=== PATIENT | male | born 1950 | race Caucasian/White ===

== ENCOUNTER 2022-06-20 01:03 | Inpatient (IN) | payer MEDICARE, OTHER, SELFPAY ==
[2022-06-20] VITALS (72 sets, daily range): BP systolic 111–167; BP diastolic 56–104; PULSE 87–136; RESP 9–30; TEMP 35.8–36.7; O2SAT 91–99; BMI 24.0
--- NOTE | ~2022-06-20 | XR_ITS ---
EXAM: XR abdomen NG/feed tube insert DATE: 06/22/2022 19:00 HISTORY: NGT placement . COMPARISON: 06/20/2022. FINDINGS: NG tube, tip and side port over the stomach. Streaky bibasilar opacities, likely atelectas is. Pneumoperitoneum. Midline surgical mercedes. Multiple loops of dilated small bowel in the upper ab domen. No organomegaly. No abnormal abdominal calcification. Degenerative changes in the spine. IMPRESSION: NG tube, in good position. Ileus versus obstruction. Reviewed, dictated and finalized at location K.
--- NOTE | ~2022-06-20 | XR_ITS ---
EXAMINATION: XR abdomen NG/feed tube insert DATE: 06/20/2022 10:16 INDICATION: Nasogastric tube placement TECHNIQUE: A supine view of the abdomen and lower chest was obtained for evaluation of feeding tube placement. COMPARISON: CT dated 07/17/2022 FINDINGS: Nasogastric tube tip in proximal side port in the body of the stomach. Multiple dilated gas-filled lo ops of small bowel in the visualized abdomen consistent with ileus versus obstruction. Small amount o f free intraperitoneal gas below the diaphragm likely related to recent surgery with midline surgical skin mrecedes project over the abdomen. Visualized mid to lower lungs are clear. Heart size is normal . IMPRESSION: 1. Is a gastric tube in stomach. 2. Free intraperitoneal gas likely related to reported recent right nephrectomy. 3. Multiple dilated gas-filled loops of small bowel consistent with ileus versus obstruction. Reviewed, dictated and finalized at location A. IMPRESSION: 1. Is a gastric tube in stomach. 2. Free intraperitoneal gas likely related to reported recent right nephrectomy . 3. Multiple dilated gas-filled loops of small bowel consistent with ileus versu s obstruction.
--- NOTE | ~2022-06-20 | XR_ITS ---
EXAMINATION: XR sm bowel follow through WS DATE: 06/23/2022 16:53 INDICATION: Small bowel obstruction post nephrectomy TECHNIQUE: Nurse Transitional radiograph(s) of the abdomen was/were obtained. Water-soluble oral contrast was admi nistered by the patient's existing nasogastric tube, and sequential radiographs of the abdomen were o btained until oral contrast was noted to be in the proximal colon. COMPARISON: CT dated 06/20/2022 FINDINGS: Nurse Transitional radiograph demonstrates midline skin mercedes overlying the abdomen and pelvis likely related to recent right nephrectomy. Nasogastric tube with tip in the body the stomach and proximal side-port n ear the level of the gastroesophageal junction. No dilated loops of gas-filled small bowel on the sco ut image. Subsequent images demonstrate gradual advancement of injected while contrast extending from the stomach to the colon. Transit time from the stomach to proximal colon was approximately 1.5-2 ho urs. There is normal caliber and mucosal fold pattern throughout the small bowel. There are some eve roesophageal reflux evident on the 1 hour 30 minute image. IMPRESSION: 1. Normal transit time to the colon of 1.5-2 hours with no dilated loops of bowel to suggest obstruct ion suggesting an improving postoperative ileus. 2. Small amount of gastroesophageal reflux. Reviewed, dictated and finalized at location A. IMPRESSION: 1. Normal transit time to the colon of 1.5-2 hours with no dilated loops of bow el to suggest obstruction suggesting an improving postoperative ileus. 2. Small amount of gastroesophageal reflux.
--- NOTE | ~2022-06-20 | CT_ITS ---
EXAMINATION: CT abdomen pelvis wo con DATE: 06/20/2022 03:39 INDICATION: nausea and vomiting status post R nephrectomy TECHNIQUE: Computed tomography (CT) of the abdomen and pelvis was performed without intravenous contr ast. Automated exposure control and iterative reconstruction technique were employed. The dose-length product was 364.89 mGy-cm. COMPARISON: None. FINDINGS: Lower thorax: Bibasilar atelectasis. Coronary artery calcifications. Liver: Normal. Biliary/Gallbladder: Cholelithiasis. No bile duct dilation. Pancreas: No mass or duct dilation. Spleen: Normal. Adrenals:No mass. Kidneys: Status post right nephrectomy. No mass, stone, or hydronephrosis on the left. GI tract: Diffusely dilated proximal and mid small bowel. Distal small bowel is decompressed but a tr ansition point is not confidently identified. Appendix not visualized. Diverticulosis without diverti culitis. Mesentery/Peritoneum: Small volume free air. The fluid in the perihepatic space and right renal fossa . Hyperdense areas within the fluid may represent clot. Retroperitoneum: No mass. Atherosclerotic abdominal aortic and/or arterial calcifications. Pelvis: Small volume free pelvic fluid. The bladder is drained by a Og catheter. Soft Tissues: Midline skin mercedes and surgical incision. Anterior hernia mesh Bones: No acute osseous finding. IMPRESSION: Small bowel obstruction. Site of obstruction not identified. Postsurgical changes from recent right n ephrectomy including pneumoperitoneum, small volume peritoneal and pelvic fluid and small volume post operative blood/clot. Active hemorrhage cannot be assessed without contrast. Reviewed, dictated and finalized at location K. IMPRESSION: Small bowel obstruction. Site of obstruction not identified. Postsurgical blevins es from recent right nephrectomy including pneumoperitoneum, small volume perit poole and pelvic fluid and small volume postoperative blood/clot. Active hemorr abdirizak cannot be assessed without contrast.
[2022-06-20] MEDS: SODIUM CHLORIDE 0.9% IV 1,000 ML 999 ML IV CONT ×2 (02:23→05:38)
[2022-06-20] MEDS: ONDANSETRON INJ 4 MG/2 ML VIAL IV PUSH ×2 (02:24→05:57)
[2022-06-20] MEDS: MORPHINE SULFATE (*CRX) 4 MG/ML INJ IV PUSH (02:24)
[2022-06-20 02:39] LABS: Appearance Urine Clear (Clear); Basophils Percent Auto 0.5 % (0.2-1.2); Bilirubin Urine 2+ (Negative); Blood Urine 3+ (Negative); Color Urine Yellow (Yellow); Eosinophils Absolute Auto 0.1 K/mm3 (0-0.3); Eosinophils Percent Auto 0.6 % (0-4.4); Glucose Urine UA Negative (Negative); Hematocrit 32.2 % (42.0-52.0); Hemoglobin 10.5 g/dL (14.0-18.0); Immature Granulocyte Absolute 0.02 K/mm3 (0.00-0.031); Immature Granulocyte Percent A 0.2 % (0-0.5); Ketones Urine Trace mg/dL (Negative); Leukocyte Esterase Ur Trace LEU/UL (Negative); Lymphocytes Absolute Auto 0.99 K/mm3 (0.9-3.2); Lymphocytes Percent Auto 11.3 % (18.3-44.2); Mean Corpuscular HGB Conc 32.6 g/dl (32-36); Mean Corpuscular Hemoglobin 27.5 pg (26-34); Mean Corpuscular Volume 84.3 fl (80-100); Mean Platelet Volume 8.6 fl (7.4-10.4); Monocytes Percent Auto 10.8 % (2.6-8.5); Neutrophils Absolute Auto 6.7 K/mm3 (1.3-6.7); Neutrophils Percent Auto 76.6 % (45.5-73.1); Nitrate Urine Negative (Negative); Platelet Count Result 363 k/mm3 (150-375); Protein Urine 3+ mg/dL (Negative); Red Blood Count 3.82 M/mm3 (4.6-6.20); Red Cell Distribution Width 15.1 % (11.5-14.5); Specific Grav Ur >= 1.030 (1.001-1.035); White Blood Count 8.8 K/mm3 (4.5-10.0); pH Urine 5.5 (5.0-9.0)
--- NOTE | 2022-06-20 02:44 | ED.GENADULT ---
HPI - General Adult General Chief complaint: Nausea/Vomiting/Diarrhea Stated complaint: Vomiting, recent Right nephrectomy Time Seen by Provider: 06/20/22 01:56 History of Present Illness HPI narrative: Patient 71-year-old gentleman who presents the emergency department with chief complaint of nausea and vomiting. The patient reports that he had a nephrectomy for renal cancer this week was discharged home and has started having nausea and vomiting. The patient reports the wounds are appearing in good shape patient reports he is noticed his urine has been all darker and has been decreased from what it has been. The patient reports has had multiple bouts of vomiting reports that his pain really has not worsened that much. Patient had surgery on Wednesday at [facility] for the nephrectomy Related Data Allergies Allergy/AdvReac Type Severity Reaction Status Date / Time egg Allergy Rash Verified 06/20/22 01:11 Review of Systems Review of Systems: A 10 system review of systems was completed on the patient and is negative except for what is stated in the HPI. Nursing and ancillary documentation was reviewed. Exam Narrative: GENERAL: Well-appearing, well-nourished, and in no acute distress. HEAD: Normocephalic, atraumatic. EYES: PERRLA and EOMI. ENT: Nares clear, no rhinorrhea or epistaxis. Mucous membranes moist. NECK: Supple. CHEST: Clear to auscultation. No respiratory distress. HEART: Regular rate and rhythm. No murmur heard. Normal peripheral pulses. ABDOMEN: Soft, nontender, nondistended, normal active bowel sounds. Midline incision to the abdomen appears well approximated with no erythema. : Og catheter in place EXTREMITIES: Normal range of motion. No edema. SKIN: Warm, dry, no rash. NEURO: No focal deficits. Alert and oriented x3. PSYCH: Normal mood and affect. Course Course Emergency Course: The case was discussed with our local hospitalist given the patient is less than 1 week postop from nephrectomy at [facility] and new onset A. fib and also postoperative small bowel obstruction they recommended the patient be transferred back to [facility]. The case was discussed with the house mover at [facility]. Currently there are no surgical beds available at this time in the morning they will notify the day house mover and as beds become available they will contact us. Vital Signs Vital signs: Vital Signs Temperature 36.3 C L 06/20/22 01:08 Pulse Rate 98 06/20/22 01:08 Respiratory Rate 17 06/20/22 01:08 Blood Pressure 128/104 H 06/20/22 01:08 Pulse Oximetry 96 06/20/22 01:08 Oxygen Delivery Room Air 06/20/22 01:08 Temperature 36.3 C L 06/20/22 01:08 Pulse Rate 98 06/20/22 01:08 Respiratory Rate 17 06/20/22 01:08 Blood Pressure 128/104 H 06/20/22 01:08 Pulse Oximetry 96 06/20/22 01:08 Oxygen Delivery Room Air 06/20/22 01:08 Medical Decision Making Vital Signs Vital Signs: Vital Signs Temperature 36.3 C L 06/20/22 01:08 Pulse Rate 98 06/20/22 01:08 Respiratory Rate 17 06/20/22 01:08 Blood Pressure 128/104 H 06/20/22 01:08 Pulse Oximetry 96 06/20/22 01:08 Oxygen Delivery Room Air 06/20/22 01:08 Temperature 36.3 C L 06/20/22 01:08 Pulse Rate 98 06/20/22 01:08 Respiratory Rate 17 06/20/22 01:08 Blood Pressure 128/104 H 06/20/22 01:08 Pulse Oximetry 96 06/20/22 01:08 Oxygen Delivery Room Air 06/20/22 01:08 Lab Data Result diagrams: 06/20/22 02:29 06/20/22 02:29 Labs: Lab Results 06/20/22 06/20/22 06/20/22 Range/Units 02:29 02:29 02:29 WBC 8.8 (4.5-10.0) K/mm3 RBC 3.82 L (4.6-6.20) M/mm3 Hgb 10.5 L (14.0-18.0) g/dL Hct 32.2 L (42.0-52.0) % MCV 84.3 (80-100) fl MCH 27.5 (26-34) pg MCHC 32.6 (32-36) g/dl RDW 15.1 H (11.5-14.5) % Plt Count 363 (150-375) k/mm3 MPV 8.6 (7.4-10.4) fl Immature Gran % (Auto) 0.2 (0-0.5) %
[2022-06-20 02:45] LABS: Add Urine Microscopic? YES
[2022-06-20 02:46] LABS: RBC Urine 21-50 /hpf (0-2)
[2022-06-20 02:47] LABS: WBC Urine 31-50 /hpf (0-3)
[2022-06-20 02:48] LABS: Squamous Epithelial Cell Urine Few /hpf (Few)
[2022-06-20 02:49] LABS: Alanine Aminotransferase 25 U/L (6-50); Albumin Level 3.7 g/dL (3.5-5.1); Alkaline Phosphatase 142 U/L (38-126); Anion Gap 11 mmol/L (8-16); Aspartate Amino Transferase 31 U/L (17-59); Bilirubin,Total 0.6 mg/dL (0.2-1.3); Blood Urea Nitrogen 27 mg/dL (9-20); Carbon Dioxide 37 mmol/L (22-30); Chloride 89 mmol/L (98-107); Estimated CRCL calculation 56 ml/min; Estimated Glomerular Filt Rate > 60; Glucose 146 mg/dL (65-110); Magnesium 1.9 mg/dL (1.6-2.3); Potassium 4.1 mmol/L (3.4-5.0); Sodium 137 mmol/L (137-145)
[2022-06-20 02:51] LABS: Bacteria Urine 1+ /hpf
--- NOTE | 2022-06-20 04:57 | ECG_ITS ---
Measurements Intervals Mode Rate: 128 P: DE: 0 QRS: 7 QRSD: 84 T: 71 QT: 392 QTc: 573 Interpretive Statements ATRIAL FIBRILLATION WITH RAPID VENTRICULAR RESPONSE EARLY PRECORDIAL R/S TRANSITION NONSPECIFIC T-WAVE ABNORMALITY- INF/LAT LEADS ABNORMAL ECG NO PREVIOUS ECG AVAILABLE FOR COMPARISON Electronically Signed On 06-20-2022 7:32:10 CDT by Sami Fox D.O.
[2022-06-20] MEDS: dilTIAZem HCl INJ 25 MG/5 ML VIAL 20 MG IV PUSH (05:38)
[2022-06-20] MEDS: dilTIAZem 100 MG/100 ML 100 MG/100 ML BAG IV CONT (05:57)
[2022-06-20 06:08] LABS: Troponin I 0.014 ng/mL (0.000-0.034)
[2022-06-20] MEDS: MORPHINE SULFATE (*CRX) 2 MG/ML INJ IV PUSH ×2 (10:00→21:42)
--- NOTE | 2022-06-20 10:13 | PC.NURSE ---
food tray ordered
[2022-06-20] MEDS: PANTOPRAZOLE SODIUM IV 40 MG VIAL IV PUSH (10:51)
[2022-06-20] MEDS: SODIUM CHLORIDE 0.9% IV 1,000 ML 100 ML IV CONT (10:51)
--- NOTE | 2022-06-20 14:02 | ECG_ITS ---
Measurements Intervals Gary Rate: 97 P: 63 AL: 150 QRS: 1 QRSD: 84 T: 29 QT: 374 QTc: 476 Interpretive Statements SINUS RHYTHM FREQUENT ATRIAL PREMATURE COMPLEXES EARLY PRECORDIAL R/S TRANSITION CONSIDER INFERIOR INFARCT, AGE INDETERMINATE ABNORMAL ECG COMPARED TO ECG 06/20/2022 05:04:38 SINUS RHYTHM NOW PRESENT Electronically Signed On 06-20-2022 18:42:25 CDT by Sami Fox D.O.
--- NOTE | 2022-06-20 14:30 | PM.IMHP ---
H&P: HPI History of Present Illness Date/Time: 06/20/22 14:30 Chief Complaint: Nausea, vomiting. Narrative: This is a very pleasant 71-year-old male with benign prostatic hyperplasia who presented to the emergency department from home for evaluation of nausea and vomiting. 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 He has not had a bowel movement since discharge and he has not had much oral intake. Yesterday he started to feel nauseated and bloated and the last 24 hours he has had numerous bouts of emesis. After speaking with his surgeon he was directed to the nearest ED for evaluation. His vital signs have been stable since arrival however he was found to be in atrial fibrillation with rapid ventricular response, which is a new diagnosis for him. He has since been started on a Cardizem drip with improvement in his rate. Interestingly he has no symptoms of atrial fibrillation and he specifically denies sensations of racing heart, palpitations, etc. CT of the abdomen and pelvis showed evidence of small-bowel obstruction and NG tube has been inserted; he had over a liter of bilious output almost immediately. Transfer was initiated to [facility] however a bed will not be available at least until tomorrow and he is being admitted here for supportive care. At the time my evaluation he feels better since the NG tube was inserted. He continues to have some hiccups. He is not in any significant pain. He denies chest pain, shortness breast, and dizziness. Review of Systems Review of Systems: Twelve systems were reviewed. No fever, chills, or sweats. Over the last year so he has been on a keto diet has lost about 40 lb. In March of this year he had painless hematuria at which time he was noted to have a bladder tumor. It is my understanding that imaging had showed possible malignancy arising in the ureter which prompted the nephrectomy. No chest pain or pleuritic pain. No shortness of breath. No history of coronary artery disease or cardiac dysrhythmia. No hematemesis. He has noticed that his urine is darker than usual and his urine output has been a bit less the last several days. Except as documented, all other systems were reviewed and are negative. [facility] Past Medical History Medical History (Updated 06/20/22 @ 18:00 by Rosario Franklin PA-C) Benign prostatic hyperplasia Gastroesophageal reflux disease Surgical History Surgical History (Updated 06/20/22 @ 17:56 by Rosario Franklin PA-C) History of biopsy of bladder (03/2022) History of cystoscopy (03/2022) History of inguinal hernia repair History of right nephrectomy (06/16/22) History of ventral hernia repair Family History Family History (Updated 06/20/22 @ 17:57 by Rosario Franklin PA-C) Sibling Brain cancer Sibling Lung cancer Sibling Coronary artery disease Social History Social History (Updated 06/20/22 @ 17:58 by Rosario Franklin PA-C) Social History: Surrogate medical decision maker: Ric Remington, spouse. Code status: Full code. Smoking packs per day: 1 Smoking cigarettes per day: 20.0 Years smoked: 20 Smoking pack-years: 20.00 Smoking status: Former smoker Tobacco type: cigarettes Additional smoking assessment comments: Quit at age 35. Alcohol intake: never Substance use: never Substance use type: does not use Additional living arrangements comments: The patient lives with his in [place]. 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 Spiritual care concerns: No Meds Home Medications and Allergies Home Medications Medication Instructions Recorded Confirmed Type oxycodone 5 mg tablet 5 mg PO Q6H PRN PAIN 06/20/22 06/20/22 History tamsulosin 0.4 mg capsule 0.4 mg PO DAILY 06/20/22 06/20/22 History Allergies Allergy/AdvReac Type Severity Reaction St
--- NOTE | 2022-06-20 17:19 | ADMGEN ---
This patient, Karthik Macedo, was admitted to IMU Room 231-01 at 1625. Patient/family oriented to hospital policies and general routines including ID bracelet, bed and alarms, visiting hours, pain management, procedures, bathroom and other care routines, personal items, smoking policy, room service/diet, and visiting hours. Information on how to activate the Rapid Response Team has been discussed. Patient/Family are encouraged to report perceived risks to care and to ask questions if they do not understand what they are told or what they should do.
[2022-06-20 17:54] LABS: Troponin I < 0.012 ng/mL (0.000-0.034)
[2022-06-20 20:42] LABS: Troponin I 0.015 ng/mL (0.000-0.034)
[2022-06-21] VITALS (16 sets, daily range): BP systolic 100–118; BP diastolic 56–72; PULSE 62–106; RESP 12–20; TEMP 36.4–36.9; O2SAT 92–97
[2022-06-21] MEDS: dilTIAZem 100 MG/100 ML 100 MG/100 ML BAG IV CONT (00:02)
[2022-06-21] MEDS: SODIUM CHLORIDE 0.9% IV 1,000 ML 75 ML IV CONT ×2 (02:02→15:22)
[2022-06-21 04:40] LABS: Basophils Percent Auto 0.4 % (0.2-1.2); Eosinophils Absolute Auto 0.6 K/mm3 (0-0.3); Hematocrit 25.2 % (42.0-52.0); Immature Granulocyte Absolute 0.01 K/mm3 (0.00-0.031); Immature Granulocyte Percent A 0.2 % (0-0.5); Lymphocytes Absolute Auto 1.17 K/mm3 (0.9-3.2); Lymphocytes Percent Auto 22.9 % (18.3-44.2); Mean Corpuscular HGB Conc 31.7 g/dl (32-36); Mean Corpuscular Hemoglobin 27.7 pg (26-34); Mean Corpuscular Volume 87.2 fl (80-100); Mean Platelet Volume 8.2 fl (7.4-10.4); Monocytes Absolute Auto 0.9 K/mm3 (0.1-0.6); Monocytes Percent Auto 17.1 % (2.6-8.5); Neutrophils Absolute Auto 2.4 K/mm3 (1.3-6.7); Neutrophils Percent Auto 47.4 % (45.5-73.1); Platelet Count Result 265 k/mm3 (150-375); Red Blood Count 2.89 M/mm3 (4.6-6.20); Red Cell Distribution Width 15.3 % (11.5-14.5); White Blood Count 5.1 K/mm3 (4.5-10.0)
[2022-06-21 04:52] LABS: Alanine Aminotransferase 24 U/L (6-50); Albumin Level 2.9 g/dL (3.5-5.1); Alkaline Phosphatase 122 U/L (38-126); Anion Gap 3 mmol/L (8-16); Aspartate Amino Transferase 33 U/L (17-59); Bilirubin,Total 0.7 mg/dL (0.2-1.3); Blood Urea Nitrogen 32 mg/dL (9-20); Calcium 8.9 mg/dL (8.4-10.2); Carbon Dioxide 31 mmol/L (22-30); Chloride 101 mmol/L (98-107); Estimated CRCL calculation 61 ml/min; Estimated Glomerular Filt Rate > 60; Glucose 93 mg/dL (65-110); Magnesium 1.9 mg/dL (1.6-2.3); Potassium 3.3 mmol/L (3.4-5.0); Sodium 135 mmol/L (137-145)
[2022-06-21] MEDS: TAMSULOSIN HCL 0.4 MG CAPSULE PO (10:56)
--- NOTE | 2022-06-21 11:03 | PC.NURSE ---
NG clamped at 1100. No complaints of nausea/vomiting at this time. Will continue to monitor closely.
--- NOTE | 2022-06-21 11:05 | PM.IMPN ---
Progress Note: A&P Assessment and Plan (1) Small bowel obstruction: Code(s): K56.609 - Unspecified intestinal obstruction, unspecified as to partial versus complete obstruction Status: Acute Assessment and Plan: Appreciate surgical consult. Continue NG tube to suction. IV fluids. (2) Atrial fibrillation with rapid ventricular response: Code(s): I48.91 - Unspecified atrial fibrillation Status: Acute Assessment and Plan: Asymptomatic Cardizem drip Hold anticoagulation secondary to a possible need for surgery. And recent surgery. Cardiology is also consult (3) Normocytic anemia: Code(s): D64.9 - Anemia, unspecified Status: Acute Assessment and Plan: He has not had labs at this facility before though I suspect his H&H are a bit low from his recent surgery. Monitor for now. (4) Dehydration: Code(s): E86.0 - Dehydration Status: Acute Assessment and Plan: IV fluids (5) Benign prostatic hyperplasia: Code(s): N40.0 - Benign prostatic hyperplasia without lower urinary tract symptoms Status: Acute Assessment and Plan: Og catheter remains in place. Subjective Date/time seen: 06/21/22 11:05 No complaints, no chest pain. Exam Narrative: General: Mildly ill-appearing male sitting up in bed in no distress. Weight: 76 kg. BMI: 24.0. HEENT: PERRL, EOMI. Sclera anicteric. NG tube in the left naris draining bilious fluid. Dry mucous membranes. Neck: Supple. Respiratory: Lungs are clear to auscultation bilaterally. Cardiovascular: Irregularly irregular rate and rhythm. Gastrointestinal: Abdomen is slightly distended with hypoactive bowel sounds. Midline incision is covered with a clean, dry, and intact dressing. Several laparoscopic incisions are well approximated. Skin: Warm and dry. No rash or lesions on limited exam. Extremities: No cyanosis, clubbing, or edema. Radial and pedal pulses intact. Neurological: Alert. Cranial nerves 2-12 are grossly intact. No gross focal deficits to casual conversation. Psychiatric: Pleasant and cooperative with normal mood and affect. Judgment and insight intact. Objective Data Vital Signs Vital Signs: Vital Signs - 24 hr 06/20/22 11:30 06/20/22 11:31 06/20/22 11:45 Temperature Pulse Rate 109 H 94 99 Respiratory Rate 18 15 17 Blood Pressure 125/73 Pulse Oximetry 93 96 97 Oxygen Delivery 06/20/22 12:00 06/20/22 12:01 06/20/22 12:15 Temperature Pulse Rate 97 99 98 Respiratory Rate 19 19 17 Blood Pressure 137/79 Pulse Oximetry 96 Oxygen Delivery 06/20/22 12:30 06/20/22 12:31 06/20/22 12:45 Temperature Pulse Rate 102 H 112 H 98 Respiratory Rate 21 H 18 17 Blood Pressure 116/75 Pulse Oximetry 98 97 Oxygen Delivery 06/20/22 13:00 06/20/22 13:01 06/20/22 13:15 Temperature Pulse Rate 103 H 101 H 98 Respiratory Rate 17 16 16 Blood Pressure 113/65 Pulse Oximetry 97 97 96 Oxygen Delivery 06/20/22 13:30 06/20/22 13:31 06/20/22 13:45 Temperature Pulse Rate 102 H 94 109 H Respiratory Rate 21 H 21 H 18 Blood Pressure 116/58 L Pulse Oximetry 98 97 Oxygen Delivery 06/20/22 14:00 06/20/22 14:01 06/20/22 14:02 Temperature Pulse Rate 94 95 94 Respiratory Rate 16 17 14 Blood Pressure 117/56 L Pulse Oximetry 98 98 Oxygen Delivery 06/20/22 14:15 06/20/22 14:30 06/20/22 14:31 Temperature Pulse Rate 98 97 101 H Respiratory Rate 20 12 19 Blood Pressure 113/70 Pulse Oximetry 93 97 Oxygen Delivery 06/20/22 14:45 06/20/22 15:00 06/20/22 15:01 Temperature Pulse Rate 95 94 92 Respiratory Rate 19 14 22 H Blood Pressure 114/75 Pulse Oximetry 97 99 96 Oxygen Delivery 06/20/22 15:15 06/20/22 15:30 06/20/22 15:31 Temperature Pulse Rate 101 H 98 94 Respiratory Rate 18 9 L 18 Blood Pressure 111/62 Pulse Oximetry 98 96 98 Oxygen Delivery 06/20/22 15:45 0
--- NOTE | 2022-06-21 11:19 | PM.CNGS ---
Assessment and Plan Assessment and plan (1) Small bowel obstruction: Code(s): K56.609 - Unspecified intestinal obstruction, unspecified as to partial versus complete obstruction Status: Acute Assessment and Plan: exam benign, + flatus, will attempt to clamp NG and start sips of clears, if no recurrent issues in 4-6 hours will try to remove NG and start clears (2) Atrial fibrillation with RVR: Code(s): I48.91 - Unspecified atrial fibrillation Status: Acute Assessment and Plan: new onset, on Cardizem gtt per cardiology (3) Dehydration: Code(s): E86.0 - Dehydration Status: Acute Assessment and Plan: cont IV resus History of Present Illness Consult details Consult date: 06/21/22 Reason for consult: abdominal pain Requesting physician: Araseli Cherry DO Narrative: The patient is a 71-year-old male presenting to the emergency depart complaining of severe crampy abdominal pain associated with intractable nausea and vomiting. The patient had a right nephrectomy on Wednesday of last week at an outside hospital. The patient reports since surgery he has not had any bowel function. The patient reports poor appetite over same time span. The patient reports he has progressively had worsening crampy abdominal pain over the last week. The patient then developed intractable nausea and vomiting over the weekend. Workup in the emergency department, including imaging, is significant for small bowel obstruction. The patient had accepted for transfer back to [facility], however, no beds are currently available. Review of Systems Constitutional: Constitutional: Reports as per HPI, Reports anorexia, Denies chills, Reports fatigue, Denies increased appetite, Reports lethargy, Reports malaise, Reports poor appetite, Reports weakness, Denies weight gain and Denies weight loss Eyes: Eyes: Reports no additional eye complaints ENT: Reports system reviewed and no additional complaints, except as documented Cardiovascular: Cardiovascular: Reports no additional cardiovascular complaints Respiratory: Respiratory: Reports no additional respiratory complaints Gastrointestinal: Gastrointestinal: Reports as per HPI, Reports abdominal pain, Reports bloating, Reports constipation, Reports early satiety, Reports nausea and Reports vomiting Genitourinary: Genitourinary: Reports no additional male genitourinary complaints Musculoskeletal: Musculoskeletal: Reports no additional musculoskeletal complaints Integumentary/Breasts: Skin/Breast: Reports system reviewed and no additional complaints, except as docu Neurologic: Reports system reviewed and no additional complaints, except as documented Psychiatric: Psychiatric: Reports no additional psychiatric complaints Endocrine: Endocrine: Reports no additional endocrine complaints Hematologic/Lymphatic: Hematologic/Lymphatic: Reports no additional hematologic/lymphatic complaints Allergic/Immunologic: Allergic/Immunologic: Reports no additional allergic/immunologic complaints [facility] Past Medical History Medical History Benign prostatic hyperplasia Gastroesophageal reflux disease Surgical History Surgical History History of biopsy of bladder (03/2022) History of cystoscopy (03/2022) History of inguinal hernia repair History of right nephrectomy (06/16/22) History of ventral hernia repair Family History Family History Sibling Brain cancer Sibling Lung cancer Sibling Coronary artery disease Social History Social History Social History: Surrogate medical decision maker: Ric Macedo, spouse. Code status: Full code. Smoking packs per day: 1 Smoking cigarettes per day: 20.0 Years smoked: 20 Smoking pack-years: 20.00 Sm
--- NOTE | 2022-06-21 11:30 | PM.CNCAR ---
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 He year has a postop ileus or bowel obstruction I would imagine. I am asked to see him because he of the impression that he had atrial fib with RVR. Upon my review of his electrocardiograms he had sinus tachycardia with PACs I do not see any tracings that are indicative of atrial fibrillation. I am going to stop the IV diltiazem infusion and at this point we will observe him while he is in the hospital here. I not sure if there are still plans to transfer him to [facility] when they have a bed available since his operation earlier in the week was done on there. Patient indicates that his NG tube suction is going to be discontinued later and some clear liquids are going to be attempted. Nonetheless at this point I do not have any specific cardiac recommendations. While he is here if there are cardiac issues please let me know Omar Handley MD [facility] History of Present Illness History of Present Illness Consult date/time: 06/21/22 11:30 Reason For Visit: small bowel obstruction, a fib with rvr Narrative: This is a 71-year-old gentleman I am seeing today at the request of the hospitalist after was admitted from the ER yesterday evening. He was there with some abdominal pain no bowel movement since earlier in the week and some nausea. He was felt to be in atrial fib with RVR upon admission he was not complaining of any sense of palpitations or chest pain no significant shortness of breath. He has never had any cardiac problems in the past. As it happens on Wednesday of this past week he underwent a right nephrectomy at [facility]. 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 He underwent removal of this mass as well as removal of the right kidney and was discharged after a couple of days. Was feeling worse in this as described above and came to the emergency room. He is felt to possibly have a small-bowel obstruction after this. I suppose it is also possible that he has a postoperative ileus. In any event because of the a tachycardia and irregular pulse he was placed on diltiazem and admitted to the hospital. I have just reviewed the patient's electrocardiograms personally and he does not have atrial fibrillation he does have some atrial ectopic activity and he was tachycardic but we do see P waves on all of the ECGs and rhythm strips that are in the record. He has otherwise been enjoying very good health he denies any problems such as hypertension dyslipidemia or diabetes. He has been a lifelong nonsmoker. 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 Review of Systems Constitutional: Constitutional: Reports no additional constitutional complaints Eyes: Eyes: Reports no additional eye complaints ENT: Reports system reviewed and no additional complaints, except as documented Cardiovascular: Cardiovascular: Reports no additional cardiovascular complaints Respiratory: Respiratory: Reports no additional respiratory complaints Gastrointestinal: Gastrointestinal: Reports as per HPI and Reports abdominal pain Musculoskeletal: Musculoskeletal: Reports no additional musculoskeletal complaints Integumentary/Breasts: Skin/Breast: Reports system reviewed and no additional complaints, except as docu Neurologic: Reports system reviewed and no additional complaints, except as documented Endocrine: Endocrine: Reports no additional endocrine complaints Hematologic/Lymphatic: Hematologic/Lymphatic: Reports no additional hematologic/lymphatic complaints
--- NOTE | 2022-06-21 17:47 | PC.NURSE ---
NG removed without complication. Will monitor closely for nausea/vomiting/pain. Patient sitting on the side of bed at this time. No complaints.
[2022-06-21] MEDS: oxyCODONE HCL (*CRX) 5 MG TAB IR PO (23:29)
[2022-06-22] VITALS (15 sets, daily range): BP systolic 108–140; BP diastolic 64–87; PULSE 90–138; RESP 14–24; TEMP 36.7–37.1; O2SAT 94–97
[2022-06-22] MEDS: SODIUM CHLORIDE 0.9% IV 1,000 ML 75 ML IV CONT ×2 (03:30→17:00)
[2022-06-22] MEDS: oxyCODONE HCL (*CRX) 5 MG TAB IR PO ×2 (06:43→15:39)
[2022-06-22] MEDS: TAMSULOSIN HCL 0.4 MG CAPSULE PO (09:13)
[2022-06-22 09:17] LABS: Anion Gap 5 mmol/L (8-16); Blood Urea Nitrogen 24 mg/dL (9-20); Calcium 8.2 mg/dL (8.4-10.2); Carbon Dioxide 28 mmol/L (22-30); Chloride 103 mmol/L (98-107); Estimated CRCL calculation 67 ml/min; Estimated Glomerular Filt Rate > 60; Glucose 83 mg/dL (65-110); Potassium 3.1 mmol/L (3.4-5.0); Sodium 136 mmol/L (137-145)
[2022-06-22] MEDS: POTASSIUM CHLORIDE 20 MEQ PACKET (FOR LIQUID) 40 MEQ PO (10:45)
--- NOTE | 2022-06-22 11:13 | PM.IMPN ---
Progress Note: A&P Assessment and Plan (1) Small bowel obstruction: Code(s): K56.609 - Unspecified intestinal obstruction, unspecified as to partial versus complete obstruction Status: Acute Assessment and Plan: Appreciate surgical consult. NG tube has been pulled. Tolerating liquid diet. Will advance per surgery (2) Atrial fibrillation with rapid ventricular response: Code(s): I48.91 - Unspecified atrial fibrillation Status: Acute Assessment and Plan: Cardiology felt this was not related to atrial fibrillation. Monitor (3) Normocytic anemia: Code(s): D64.9 - Anemia, unspecified Status: Acute Assessment and Plan: He has not had labs at this facility before though I suspect his H&H are a bit low from his recent surgery. Monitor for now. (4) Dehydration: Code(s): E86.0 - Dehydration Status: Acute Assessment and Plan: IV fluids (5) Benign prostatic hyperplasia: Code(s): N40.0 - Benign prostatic hyperplasia without lower urinary tract symptoms Status: Acute Assessment and Plan: Og catheter remains in place. Subjective Date/time seen: 06/22/22 11:13 Doing okay, tolerating liquid diet Exam Narrative: General: Mildly ill-appearing male sitting up in bed in no distress. Weight: 76 kg. BMI: 24.0. HEENT: PERRL, EOMI. Sclera anicteric. NG tube in the left naris draining bilious fluid. Dry mucous membranes. Neck: Supple. Respiratory: Lungs are clear to auscultation bilaterally. Cardiovascular: Irregularly irregular rate and rhythm. Gastrointestinal: Abdomen is slightly distended with hypoactive bowel sounds. Midline incision is covered with a clean, dry, and intact dressing. Several laparoscopic incisions are well approximated. Skin: Warm and dry. No rash or lesions on limited exam. Extremities: No cyanosis, clubbing, or edema. Radial and pedal pulses intact. Neurological: Alert. Cranial nerves 2-12 are grossly intact. No gross focal deficits to casual conversation. Psychiatric: Pleasant and cooperative with normal mood and affect. Judgment and insight intact. Objective Data Vital Signs Vital Signs: Vital Signs - 24 hr 06/21/22 12:00 06/21/22 12:00 06/21/22 12:00 Temperature 97.6 F Pulse Rate 86 84 Respiratory Rate 20 Blood Pressure 102/60 Pulse Oximetry 96 Oxygen Delivery Room Air 06/21/22 14:00 06/21/22 16:00 06/21/22 16:00 Temperature Pulse Rate 95 94 Respiratory Rate Blood Pressure Pulse Oximetry Oxygen Delivery Room Air 06/21/22 16:00 06/21/22 18:00 06/21/22 20:00 Temperature 98.1 F Pulse Rate 76 106 H 99 Respiratory Rate 16 Blood Pressure 118/72 Pulse Oximetry 94 Oxygen Delivery 06/21/22 20:00 06/21/22 20:00 06/21/22 20:43 Temperature 98.0 F Pulse Rate 99 90 Respiratory Rate 16 18 Blood Pressure 100/56 L Pulse Oximetry 94 97 94 Oxygen Delivery Room Air Room Air 06/21/22 22:00 06/21/22 23:31 06/22/22 00:00 Temperature 97.7 F Pulse Rate 89 88 90 Respiratory Rate 14 Blood Pressure 118/63 Pulse Oximetry 96 Oxygen Delivery 06/22/22 00:00 06/22/22 02:00 06/22/22 04:00 Temperature Pulse Rate 90 102 H 97 Respiratory Rate 14 Blood Pressure Pulse Oximetry 96 Oxygen Delivery Room Air 06/22/22 04:00 06/22/22 04:00 06/22/22 06:00 Temperature 98.7 F Pulse Rate 97 138 H 106 H Respiratory Rate 14 20 Blood Pressure 109/72 Pulse Oximetry 96 94 Oxygen Delivery Room Air 06/22/22 08:00 06/22/22 08:30 06/22/22 10:00 Temperature 98.2 F Pulse Rate 109 H 104 H 109 H Respiratory Rate 20 Blood Pressure 108/64 Pulse Oximetry 95 Oxygen Delivery Intake/Output Intake/Output: Intake & Output 06/19/22 06/20/22 06/21/22 06/22/22 23:59 23:59 23:59 23:59 Intake Total 3000 1420 1537 Output Total 3500 1140 750 Balance -500 280 787 Meds/Results Medications:
--- NOTE | 2022-06-22 12:34 | PM.PNGS ---
Progress Note: A&P Assessment and Plan (1) Small bowel obstruction: Code(s): K56.609 - Unspecified intestinal obstruction, unspecified as to partial versus complete obstruction Status: Acute Assessment and Plan: resolved, exam benign, ADAT (2) Atrial fibrillation with RVR: Code(s): I48.91 - Unspecified atrial fibrillation Status: Acute Assessment and Plan: mgmt per cardiology Subjective Subjective Date/Time Seen: 06/22/22 12:34 feels good, +BM x 2 yesterday, no pain, jeffrey full liquids Review of Systems Review of Systems: All systems reviewed & are unremarkable except as noted in HPI and below Exam Const: General: cooperative, comfortable and no acute distress Resp: Auscultation: clear to auscultation bilaterally Cardio: Rate: tachycardic Rhythm: abnormal rhythm GI: Inspection: normal to inspection, distended and incision GI Palp: No abdominal tenderness, Yes Soft to palpation, No Tenderness to palpation present (GI), No Guarding due to palpation present (GI) and No Rigid due to palpation Objective Data Vital Signs Vital Signs: Vital Signs - 24 hr 06/21/22 14:00 06/21/22 16:00 06/21/22 16:00 Temperature Pulse Rate 95 94 Respiratory Rate Blood Pressure Pulse Oximetry Oxygen Delivery Room Air 06/21/22 16:00 06/21/22 18:00 06/21/22 20:00 Temperature 36.7 C Pulse Rate 76 106 H 99 Respiratory Rate 16 Blood Pressure 118/72 Pulse Oximetry 94 Oxygen Delivery 06/21/22 20:00 06/21/22 20:00 06/21/22 20:43 Temperature 36.7 C Pulse Rate 99 90 Respiratory Rate 16 18 Blood Pressure 100/56 L Pulse Oximetry 94 97 94 Oxygen Delivery Room Air Room Air 06/21/22 22:00 06/21/22 23:31 06/22/22 00:00 Temperature 36.5 C Pulse Rate 89 88 90 Respiratory Rate 14 Blood Pressure 118/63 Pulse Oximetry 96 Oxygen Delivery 06/22/22 00:00 06/22/22 02:00 06/22/22 04:00 Temperature Pulse Rate 90 102 H 97 Respiratory Rate 14 Blood Pressure Pulse Oximetry 96 Oxygen Delivery Room Air 06/22/22 04:00 06/22/22 04:00 06/22/22 06:00 Temperature 37.1 C Pulse Rate 97 138 H 106 H Respiratory Rate 14 20 Blood Pressure 109/72 Pulse Oximetry 96 94 Oxygen Delivery Room Air 06/22/22 08:00 06/22/22 08:30 06/22/22 10:00 Temperature 36.8 C Pulse Rate 109 H 104 H 109 H Respiratory Rate 20 Blood Pressure 108/64 Pulse Oximetry 95 Oxygen Delivery 06/22/22 12:00 Temperature 36.7 C Pulse Rate 102 H Respiratory Rate 24 H Blood Pressure 114/68 Pulse Oximetry 97 Oxygen Delivery Intake/Output Intake/Output: Intake & Output 06/19/22 06/20/22 06/21/22 06/22/22 23:59 23:59 23:59 23:59 Intake Total 3000 1420 1537 Output Total 3500 1140 750 Balance -500 280 787 Meds/Results Medications: Active Medications Generic Name Dose Route Start Last Admin Trade Name Freq PRN Reason Stop Dose Admin Sodium Chloride 1,000 mls @ 75 mls/hr 06/21/22 00:45 06/22/22 03:30 Normal Saline Iv IV CONT 75 mls/hr .[id number] BILLY Administration Morphine Sulfate 2 mg 06/20/22 18:11 06/20/22 21:42 Morphine Sulfate (*Crx) 2 Mg/Ml Inj IV PUSH 2 mg Q4H PRN Administration Pain Rated 7-10 Ondansetron HCl 4 mg 06/20/22 18:11 Ondansetron Inj 4 Mg/2 Ml Vial IV PUSH Q4H PRN Nausea And Vomiting Oxycodone HCl 5 mg 06/21/22 00:41 06/22/22 06:43 Oxycodone Hcl (*Crx) 5 Mg Tab Ir PO 5 mg Q6H PRN Administration Pain Rated 4-6 Perflutren Lipid Microsphere 0 ml 06/20/22 18:10 Perflutren Lipid Microspheres 1.5 Ml Vial Diluted To 10 Ml Total Volume IV PUSH 06/22/22 18:10 ONCE PRN adequate visualization Protocol Tamsulosin HCl 0.4 mg 06/21/22 09:00 06/22/22 09:13 Tamsulosin Hcl 0.4 Mg Capsule PO 0.4 mg DAILY BILLY Administration Radiology Results: ITS Impressions Abdomen X-Ray 06/20/22 10:49 IMPRESSION: 1. Is a gastric tube i
[2022-06-22] MEDS: ONDANSETRON INJ 4 MG/2 ML VIAL IV PUSH ×2 (15:37→17:41)
[2022-06-22 19:53] LABS: Anion Gap 14 mmol/L (8-16); Blood Urea Nitrogen 21 mg/dL (9-20); Calcium 8.2 mg/dL (8.4-10.2); Carbon Dioxide 26 mmol/L (22-30); Chloride 98 mmol/L (98-107); Estimated CRCL calculation 67 ml/min; Estimated Glomerular Filt Rate > 60; Glucose 115 mg/dL (65-110); Potassium 3.7 mmol/L (3.4-5.0); Sodium 138 mmol/L (137-145)
[2022-06-23] VITALS (19 sets, daily range): BP systolic 116–144; BP diastolic 63–82; PULSE 90–201; RESP 12–17; TEMP 36.4–37.1; O2SAT 96–100
[2022-06-23] MEDS: SODIUM CHLORIDE 0.9% IV 1,000 ML 75 ML IV CONT ×2 (03:52→17:04)
[2022-06-23 12:46] LABS: Hematocrit 29.8 % (42.0-52.0); Hemoglobin 9.4 g/dL (14.0-18.0); Mean Corpuscular HGB Conc 31.5 g/dl (32-36); Mean Corpuscular Hemoglobin 27.2 pg (26-34); Mean Corpuscular Volume 86.1 fl (80-100); Mean Platelet Volume 7.9 fl (7.4-10.4); Platelet Count Result 342 k/mm3 (150-375); Red Blood Count 3.46 M/mm3 (4.6-6.20); Red Cell Distribution Width 14.9 % (11.5-14.5); White Blood Count 8.5 K/mm3 (4.5-10.0)
[2022-06-23 12:55] LABS: Anion Gap 7 mmol/L (8-16); Blood Urea Nitrogen 18 mg/dL (9-20); Calcium 8.6 mg/dL (8.4-10.2); Carbon Dioxide 28 mmol/L (22-30); Chloride 102 mmol/L (98-107); Estimated CRCL calculation 67 ml/min; Estimated Glomerular Filt Rate > 60; Glucose 79 mg/dL (65-110); Magnesium 1.8 mg/dL (1.6-2.3); Potassium 3.3 mmol/L (3.4-5.0); Sodium 137 mmol/L (137-145)
--- NOTE | 2022-06-23 14:09 | PM.PNGS ---
Progress Note: A&P Assessment and Plan (1) Small bowel obstruction: Code(s): K56.609 - Unspecified intestinal obstruction, unspecified as to partial versus complete obstruction Status: Acute Assessment and Plan: Seemed to be improving, NG was removed and he began vomiting again yesterday. NG replaced. Will get Gastrografin small bowel series to further evaluate. Continue NG tube, bowel rest, and IV fluids. Encouraged OOB/walking halls as tolerated. (2) Atrial fibrillation with RVR: Code(s): I48.91 - Unspecified atrial fibrillation Status: Acute Assessment and Plan: Echo ordered today. His equipment monitor phototypesetting appears to be in sinus tachycardia with PACs during my assessment, but in review of his telemetry he has had multiple episodes of an irregular tachycardia this morning that are intermittent. Management per cardiology. Plan I have discussed the patient's case and plan of care with Dr. Horne. Subjective Subjective Date/Time Seen: 06/23/22 14:09 Patient reports: afebrile Interval history: This is a 71 yo M with recent right nephrectomy last Wednesday at [facility] and presented to our ER with complaints of abdominal pain, vomiting, and constipation. Workup revealed evidence of a small bowel obstruction. He was unable to be transferred back to [facility] due to bed availability. NG was placed and he improved. He tolerated a clamping trial yesterday and NG was removed. They tried advancing his diet as tolerated. The pt had 2 BMs yesterday. In the afternoon, he developed nausea and had over 1 L emesis. NG tube was replaced. Chart reviewed. Patient seen and examined today. He reports feeling less bloated and distended this morning. He had 1 L NG output from overnight. He reports little gas early this morning, but no BM since yesterday. No other complaints at this time. Per nursing, he has had issues with intermittent tachycardia this morning. Review of Systems Review of Systems: All systems reviewed & are unremarkable except as noted in HPI and below Exam Const: General: comfortable, no acute distress and awake Orientation/consciousness: patient oriented x3 Cardio: Rate: tachycardic Rhythm: regular rhythm GI: Inspection: distended and incision (dry and intact) GI Palp: Yes Soft to palpation, Yes Tenderness to palpation present (GI) (incisional) and No Guarding due to palpation present (GI) Auscultation: Hypoactive bowel sounds present Urinary Catheter: Urinary Catheter: patent and draining and urine clear Extrem: General: no calf tenderness and no edema Psych: Mental Status: mental status grossly normal Insight: Good insight present (Psych) Objective Data Vital Signs Vital Signs: Vital Signs - 24 hr 06/22/22 16:00 06/22/22 16:30 06/22/22 18:00 Temperature 98.8 F Pulse Rate 107 H 108 H 109 H Respiratory Rate 24 H Blood Pressure 137/84 Pulse Oximetry 96 Oxygen Delivery 06/22/22 20:00 06/22/22 20:00 06/22/22 20:00 Temperature 98.5 F Pulse Rate 100 105 H 105 H Respiratory Rate 20 20 Blood Pressure 140/87 Pulse Oximetry 95 95 Oxygen Delivery Room Air 06/22/22 22:00 06/22/22 23:57 06/23/22 00:00 Temperature 98.1 F Pulse Rate 110 H 100 Respiratory Rate 16 Blood Pressure 128/74 Pulse Oximetry 95 97 Oxygen Delivery Room Air 06/23/22 00:00 06/23/22 00:00 06/23/22 02:00 Temperature Pulse Rate 101 H 101 H 104 H Respiratory Rate 16 Blood Pressure Pulse Oximetry 97 Oxygen Delivery Room Air 06/23/22 04:00 06/23/22 04:00 06/23/22 04:00 Temperature 98.3 F Pulse Rate 102 H 102 H 100 Respiratory Rate 16 14 Blood Pressure 143/82 H Pulse Oximetry 97 97 Oxygen Delivery Room Air 06/23/22 06:00 06/23/22 07:55 06/23/22 08:15 Temperature 97.6 F Pulse Rate 118 H 94 101 H Respiratory Rate 12 Blood Pressure 116/67 Pulse Oximetry 97 Oxygen Delivery 06/23/22 10:00 06/23/22 12:00 06/23/22 12:28 Tem
--- NOTE | 2022-06-23 14:42 | PC.NURSE ---
pt to Xray dept for small bowel follow via stretchmarcelino
[2022-06-23] MEDS: METOPROLOL TARTRATE INJ 5 MG/5 ML VIAL IV PUSH (16:16)
--- NOTE | 2022-06-23 16:59 | ECG_ITS ---
Measurements Intervals [place] Rate: 94 P: 56 MI: 140 QRS: 11 QRSD: 84 T: 23 QT: 366 QTc: 458 Interpretive Statements SINUS RHYTHM RSR' IN V1 OR V2, PROBABLY NORMAL VARIANT MINIMAL Q WAVES- INFERIOR LEADS BASELINE ARTIFACT- III BORDERLINE ECG COMPARED TO ECG 06/20/2022 14:14:58 NO SIGNIFICANT CHANGES Electronically Signed On 06-24-2022 6:41:18 CDT by Sami Fox D.O.
--- NOTE | 2022-06-23 17:06 | PM.IMPN ---
Progress Note: A&P Assessment and Plan (1) Small bowel obstruction: Code(s): K56.609 - Unspecified intestinal obstruction, unspecified as to partial versus complete obstruction Status: Acute Assessment and Plan: Appreciate surgical consult. NG tube has been pulled. Tolerating liquid diet. Will advance per surgery 06/23/2022 interval history: patient is 71-year-old male status post nephrectomy presented emergency department with: Abdominal pain nausea or vomiting was found to have small-bowel obstruction initially patient was doing you and NGT was pulled out started the patient on clear liquid tolerated and then later yesterday developed abdominal pain nausea or vomiting and NG tube was placed, patient not passing any gas, seen by surgery service recommended bowel rest and to further evaluate patient will have Gastrografin small-bowel series, patient also found to tachycardia seen by cardiology does not suspect atrial fibrillation most likely sinus tachycardia with a PAC, remains clinically stable will continue to monitor further recommendation to follow. (2) Atrial fibrillation with rapid ventricular response: Code(s): I48.91 - Unspecified atrial fibrillation Status: Acute Assessment and Plan: Cardiology felt this was not related to atrial fibrillation. Monitor (3) Normocytic anemia: Code(s): D64.9 - Anemia, unspecified Status: Acute Assessment and Plan: He has not had labs at this facility before though I suspect his H&H are a bit low from his recent surgery. Monitor for now. (4) Dehydration: Code(s): E86.0 - Dehydration Status: Acute Assessment and Plan: IV fluids (5) Benign prostatic hyperplasia: Code(s): N40.0 - Benign prostatic hyperplasia without lower urinary tract symptoms Status: Acute Assessment and Plan: Og catheter remains in place. Subjective Date/time seen: 06/23/22 17:06 06/23/2022 interval history: patient is 71-year-old male status post nephrectomy presented emergency department with: Abdominal pain nausea or vomiting was found to have small-bowel obstruction initially patient was doing you and NGT was pulled out started the patient on clear liquid tolerated and then later yesterday developed abdominal pain nausea or vomiting and NG tube was placed, patient not passing any gas, seen by surgery service recommended bowel rest and to further evaluate patient will have Gastrografin small-bowel series, patient also found to tachycardia seen by cardiology does not suspect atrial fibrillation most likely sinus tachycardia with a PAC, remains clinically stable will continue to monitor further recommendation to follow. Review of Systems Review of Systems: All systems reviewed & are unremarkable except as noted in HPI and below Exam Narrative: Patient is comfortable, NAD HEENT: eyes are clear and none icteric LUNGS: normal respiratory effort ABD: bowel sounds hyperactive, diffusely tender Lower extremities: no edema SKIN: nonjaundiced Neuro: grossly intact. Objective Data Vital Signs Vital Signs: Vital Signs - 24 hr 06/22/22 18:00 06/22/22 20:00 06/22/22 20:00 Temperature 98.5 F Pulse Rate 109 H 100 105 H Respiratory Rate 20 Blood Pressure 140/87 Pulse Oximetry 95 Oxygen Delivery 06/22/22 20:00 06/22/22 22:00 06/22/22 23:57 Temperature Pulse Rate 105 H 110 H Respiratory Rate 20 Blood Pressure Pulse Oximetry 95 95 Oxygen Delivery Room Air Room Air 06/23/22 00:00 06/23/22 00:00 06/23/22 00:00 Temperature 98.1 F Pulse Rate 100 101 H 101 H Respiratory Rate 16 16 Blood Pressure 128/74 Pulse Oximetry 97 97 Oxygen Delivery Room Air 06/23/22 02:00 06/23/22 04:00 06/23/22 04:00 Temperature Pulse Rate 104 H 102 H 102 H Respiratory Rate 16 Blood Pressure Pulse Oximetry 97 Oxygen Delivery Room Air 06/23/22 04:00 06/23/22
--- NOTE | 2022-06-23 17:06 | PC.NURSE ---
Pt returned to room - monitor SR 90's PAC's- 12 lead ekg ordered by dr. Cleary to be done when pt returned to room
[2022-06-23] MEDS: POTASSIUM CHLORIDE INJ 40 MEQ in SODIUM CHLORIDE 0.9% IV 500 ML 130 MEQ IVPB (17:49)
--- NOTE | 2022-06-23 18:10 | ECHO_ITS ---
Patient Info Name: Karthik Macedo Age: 71 years : 1950 Gender: Male Ht: 70 in Wt: 167 lbs BSA: 1.94 m2 HR: 118 bpm BP: 143 / 83 mmHg Heart Rhythm: Sinus Rhythm Technical Quality: Fair Exam Date: 06/23/2022 9:55 AM Exam Location: [facility] Patient Status: Inpatient Admit Date: 06/20/2022 Staff Ordering Physician: Rosario Franklin PA-C Primary Care Provider: Jena Ordoñez RDCS Attending Provider: Araseli Cherry DO Referring Physician: Noemi AVILES; Exam Type: CA echo doppler color flow Study Info Indications - new onset Afib/RVR Complete two-dimensional, color flow and Doppler transthoracic echocardiogram is performed. Summary 1. Complete two-dimensional, color flow and Doppler transthoracic echocardiogram is performed. 2. Left ventricular chamber dimension is normal. 3. Left ventricular systolic function is hyperdynamic, estimated at >70%. 4. There is mildly increased left ventricular wall thickness. 5. The left ventricular diastolic function is normal. 6. Left atrial chamber dimension is mildly enlarged. 7. There is mild tricuspid valve regurgitation. 8. Mild pulmonary hypertension, estimated pulmonary arterial systolic pressure is 39 mmHg. Left Ventricle Left ventricular chamber dimension is normal. Left ventricular systolic function is hyperdynamic, estimated at >70%. There is mildly increased left ventricular wall thickness. The left ventricular diastolic function is normal. Right Ventricle Right ventricular chamber dimension is normal. Right ventricular systolic function is normal. Left Atria Left atrial chamber dimension is mildly enlarged. Right Atria Right atrial chamber dimension is normal. Atrial Septum Intact interatrial septum visualized by color flow imaging. Aortic Valve The aortic valve is trileaflet. There is mild aortic valve sclerosis. There is no aortic valve stenosis. There is trace aortic valve regurgitation. Pulmonic Valve The pulmonic valve is normal. There is no pulmonic valve stenosis. There is trace pulmonic regurgitation. Mitral Valve The mitral valve has thickened leaflets. There is no mitral valve stenosis. There is trace mitral valve regurgitation. Tricuspid Valve The tricuspid valve leaflets are normal. There is no significant tricuspid valve stenosis. There is mild tricuspid valve regurgitation. Mild pulmonary hypertension, estimated pulmonary arterial systolic pressure is 39 mmHg. Pericardium/Pleural The pericardium appears normal. There is no pericardial effusion. Aorta The aortic root size at the sinus of Valsalva is normal. Left Ventricular Outflow Tract Name Value Normal LVOT 2D LVOT Diameter 2.0 cm LVOT Doppler LVOT Peak Gradient 8 mmHg LVOT Mean Gradient 4 mmHg LVOT VTI 21 cm LVOT VTI/AV VTI Ratio 0.8 LVOT Stroke Volume 66 ml LVOT CO 6.2 l/min LVOT CI 3.2 l/min/m2
[2022-06-24] VITALS (15 sets, daily range): BP systolic 128–145; BP diastolic 71–86; PULSE 82–166; RESP 16–18; TEMP 36.6–37.3; O2SAT 99–100
[2022-06-24 05:11] LABS: Hematocrit 28.2 % (42.0-52.0); Hemoglobin 8.6 g/dL (14.0-18.0); Mean Corpuscular HGB Conc 30.5 g/dl (32-36); Mean Corpuscular Hemoglobin 27.2 pg (26-34); Mean Corpuscular Volume 89.2 fl (80-100); Mean Platelet Volume 8.4 fl (7.4-10.4); Platelet Count Result 354 k/mm3 (150-375); Red Blood Count 3.16 M/mm3 (4.6-6.20); Red Cell Distribution Width 15.4 % (11.5-14.5)
[2022-06-24 05:23] LABS: Anion Gap 12 mmol/L (8-16); Blood Urea Nitrogen 19 mg/dL (9-20); Calcium 8.7 mg/dL (8.4-10.2); Carbon Dioxide 25 mmol/L (22-30); Chloride 108 mmol/L (98-107); Estimated CRCL calculation 67 ml/min; Estimated Glomerular Filt Rate > 60; Glucose 77 mg/dL (65-110); Potassium 3.6 mmol/L (3.4-5.0); Sodium 145 mmol/L (137-145)
--- NOTE | 2022-06-24 10:49 | PM.PNCARD ---
Progress Note: A&P Assessment and Plan (1) Atrial fibrillation with rapid ventricular response: Code(s): I48.91 - Unspecified atrial fibrillation Status: Acute Plan He did go into atrial fibrillation yesterday. Back in sinus rhythm at this point. Continue IV metoprolol p.r.n. Subjective Date/time seen: 71-year-old with bowel obstruction Date of service 06/24/2022: Yesterday he did go in and out of atrial fibrillation. Currently in sinus rhythm and the cardiac perspective has no palpitations, chest pain, shortness of breath Review of Systems Constitutional: Constitutional: Reports no additional constitutional complaints Eyes: Eyes: Reports no additional eye complaints ENT: Reports system reviewed and no additional complaints, except as documented Cardiovascular: Cardiovascular: Reports no additional cardiovascular complaints Respiratory: Respiratory: Reports no additional respiratory complaints Gastrointestinal: Gastrointestinal: Reports as per HPI and Reports abdominal pain Musculoskeletal: Musculoskeletal: Reports no additional musculoskeletal complaints Integumentary/Breasts: Skin/Breast: Reports system reviewed and no additional complaints, except as docu Neurologic: Reports system reviewed and no additional complaints, except as documented Endocrine: Endocrine: Reports no additional endocrine complaints Hematologic/Lymphatic: Hematologic/Lymphatic: Reports no additional hematologic/lymphatic complaints Allergic/Immunologic: Allergic/Immunologic: Reports no additional allergic/immunologic complaints Exam Const: General: uncomfortable Other: Pleasant 71-year-old man resting in his bed with his family. Has some mild abdominal discomfort HENMT: Mouth: Yes moist mucous membranes Eyes: Sclera: sclerae normal Neck: Neck: supple and no JVD Other: Carotid pulses are normal bilaterally Resp: Effort & Inspection: normal respiratory effort Auscultation: clear to auscultation bilaterally Cardio: Rate: regular rate Rhythm: regular rhythm Other: No murmur no gallop GI: Other: Fall sounds are hypoactive Skin: General skin exam: normal color Neuro: Other: Alert and oriented x3, normal cognition Extrem: Other: No edema, good distal pulses Objective Data Vital Signs Vital Signs: Vital Signs - 24 hr 06/23/22 12:00 06/23/22 12:28 06/23/22 13:20 Temperature 36.4 C Pulse Rate 101 H 108 H 148 H Respiratory Rate 16 Blood Pressure 124/63 Pulse Oximetry 97 Oxygen Delivery 06/23/22 13:28 06/23/22 14:00 06/23/22 16:16 Temperature Pulse Rate 107 H 99 201 H Respiratory Rate Blood Pressure Pulse Oximetry Oxygen Delivery 06/23/22 16:00 06/23/22 17:30 06/23/22 18:00 Temperature 37.0 C Pulse Rate 98 90 98 Respiratory Rate 16 Blood Pressure 130/79 Pulse Oximetry 96 Oxygen Delivery 06/23/22 20:00 06/23/22 23:42 06/23/22 20:00 Temperature 36.4 C L 37.1 C Pulse Rate 110 H 98 96 Respiratory Rate 16 16 17 Blood Pressure 135/78 144/73 H Pulse Oximetry 97 100 Oxygen Delivery Room Air 06/23/22 20:00 06/23/22 22:00 06/24/22 00:00 Temperature Pulse Rate 101 H 94 82 Respiratory Rate Blood Pressure Pulse Oximetry Oxygen Delivery Room Air 06/24/22 00:00 06/24/22 02:00 06/24/22 03:31 Temperature Pulse Rate 94 104 H 110 H Respiratory Rate Blood Pressure Pulse Oximetry Oxygen Delivery Room Air 06/24/22 04:00 06/24/22 04:00 06/24/22 06:00 Temperature 36.6 C Pulse Rate 94 101 H 95 Respiratory Rate 16 Blood Pressure 128/73 Pulse Oximetry 99 Oxygen Delivery 06/24/22 08:00 06/24/22 08:00 Temperature 36.8 C 36.8 C Pulse Rate 92 92 Respiratory Rate 16 16 Blood Pressure 135/79 135/79 Pulse Oximetry 100 100 Oxygen Delivery Intake/Output Intake/Output: Intake & Output 06/21/22 06/22/22 06/23/22 06/24/22 23:59 23:59 23:59 23:59 Intake Total 5188 2869 6663
[2022-06-24] MEDS: SODIUM CHLORIDE 0.9% IV 1,000 ML 75 ML IV CONT ×2 (10:53→23:21)
--- NOTE | 2022-06-24 11:42 | PM.PNGS ---
Progress Note: A&P Assessment and Plan (1) Small bowel obstruction: Code(s): K56.609 - Unspecified intestinal obstruction, unspecified as to partial versus complete obstruction Status: Acute Assessment and Plan: Resolving. Gastrografin SBS showed normal transit, no obstruction. Likely a resolving ileus. NG clamped, will remove later today and start a clear liquid diet if he tolerates clamping trial. Encouraged ambulating in the halls a few times again today, increasing activity as tolerated. (2) Atrial fibrillation with RVR: Code(s): I48.91 - Unspecified atrial fibrillation Status: Acute Plan I have discussed the patient's case and plan of care with Dr. Horne. Subjective Subjective Date/Time Seen: 06/24/22 11:42 Patient reports: no new complaints, feels better, flatus, diarrhea and afebrile Interval history: Patient seen and examined. He is feeling much better today. Feels less bloated and no nausea. He is only having some mild incisional pain from surgery that is well controlled. NG with only 150 cc out overnight. He has had multiple liquid stools since his gastrografin study yesterday. Review of Systems Review of Systems: All systems reviewed & are unremarkable except as noted in HPI and below Exam Const: General: comfortable and no acute distress Orientation/consciousness: patient oriented x3 GI: Inspection: non-distended and incision (dry and mercedes intact with no erythema, trochar incisions healing well) GI Palp: Yes Soft to palpation, Yes Tenderness to palpation present (GI) (incisional) and No Guarding due to palpation present (GI) Percussion: Yes normal to percussion Auscultation: normal bowel sounds Urinary Catheter: Urinary Catheter: patent and draining and urine clear Extrem: General: no calf tenderness and no edema Psych: Mental Status: mental status grossly normal Insight: Good insight present (Psych) Objective Data Vital Signs Vital Signs: Vital Signs - 24 hr 06/23/22 12:00 06/23/22 12:28 06/23/22 13:20 Temperature 97.6 F Pulse Rate 101 H 108 H 148 H Respiratory Rate 16 Blood Pressure 124/63 Pulse Oximetry 97 Oxygen Delivery 06/23/22 13:28 06/23/22 14:00 06/23/22 16:16 Temperature Pulse Rate 107 H 99 201 H Respiratory Rate Blood Pressure Pulse Oximetry Oxygen Delivery 06/23/22 16:00 06/23/22 17:30 06/23/22 18:00 Temperature 98.6 F Pulse Rate 98 90 98 Respiratory Rate 16 Blood Pressure 130/79 Pulse Oximetry 96 Oxygen Delivery 06/23/22 20:00 06/23/22 23:42 06/23/22 20:00 Temperature 97.5 F L 98.8 F Pulse Rate 110 H 98 96 Respiratory Rate 16 16 17 Blood Pressure 135/78 144/73 H Pulse Oximetry 97 100 Oxygen Delivery Room Air 06/23/22 20:00 06/23/22 22:00 06/24/22 00:00 Temperature Pulse Rate 101 H 94 82 Respiratory Rate Blood Pressure Pulse Oximetry Oxygen Delivery Room Air 06/24/22 00:00 06/24/22 02:00 06/24/22 03:31 Temperature Pulse Rate 94 104 H 110 H Respiratory Rate Blood Pressure Pulse Oximetry Oxygen Delivery Room Air 06/24/22 04:00 06/24/22 04:00 06/24/22 06:00 Temperature 97.8 F Pulse Rate 94 101 H 95 Respiratory Rate 16 Blood Pressure 128/73 Pulse Oximetry 99 Oxygen Delivery 06/24/22 08:00 06/24/22 08:00 Temperature 98.2 F 98.2 F Pulse Rate 92 92 Respiratory Rate 16 16 Blood Pressure 135/79 135/79 Pulse Oximetry 100 100 Oxygen Delivery Intake/Output Intake/Output: Intake & Output 06/21/22 06/22/22 06/23/22 06/24/22 23:59 23:59 23:59 23:59 Intake Total 1420 2757 2300 1000 Output Total 1140 2150 2850 800 Balance 280 607 -550 200 Meds/Results Medications: Active Medications Generic Name Dose Route Start Last Admin Trade Name Freq PRN Reason Stop Dose Admin Sodium Chloride 1,000 mls @ 75 mls/hr 06/21/22 00:45 06/24/22 10:53 Normal Saline Iv IV CONT 75 mls/hr .[id number] BILLY Admi
--- NOTE | 2022-06-24 12:45 | PM.IMPN ---
Progress Note: A&P Assessment and Plan (1) Small bowel obstruction: Code(s): K56.609 - Unspecified intestinal obstruction, unspecified as to partial versus complete obstruction Status: Acute Assessment and Plan: Appreciate surgical consult. NG tube In place. NG tube and diet per surgery (2) Atrial fibrillation with rapid ventricular response: Code(s): I48.91 - Unspecified atrial fibrillation Status: Acute Assessment and Plan: Cardiology felt this was not related to atrial fibrillation. Monitor (3) Normocytic anemia: Code(s): D64.9 - Anemia, unspecified Status: Acute Assessment and Plan: He has not had labs at this facility before though I suspect his H&H are a bit low from his recent surgery. Monitor for now. (4) Dehydration: Code(s): E86.0 - Dehydration Status: Acute Assessment and Plan: IV fluids (5) Benign prostatic hyperplasia: Code(s): N40.0 - Benign prostatic hyperplasia without lower urinary tract symptoms Status: Acute Assessment and Plan: Og catheter remains in place. Subjective Date/time seen: 06/24/22 12:45 no new complaints. Exam Narrative: Patient is comfortable, NAD HEENT: eyes are clear and none icteric LUNGS: normal respiratory effort ABD: bowel sounds hyperactive, diffusely tender Lower extremities: no edema SKIN: nonjaundiced Neuro: grossly intact. Objective Data Vital Signs Vital Signs: Vital Signs - 24 hr 06/23/22 13:20 06/23/22 13:28 06/23/22 14:00 Temperature Pulse Rate 148 H 107 H 99 Respiratory Rate Blood Pressure Pulse Oximetry Oxygen Delivery 06/23/22 16:16 06/23/22 16:00 06/23/22 17:30 Temperature 98.6 F Pulse Rate 201 H 98 90 Respiratory Rate 16 Blood Pressure 130/79 Pulse Oximetry 96 Oxygen Delivery 06/23/22 18:00 06/23/22 20:00 06/23/22 23:42 Temperature 97.5 F L 98.8 F Pulse Rate 98 110 H 98 Respiratory Rate 16 16 Blood Pressure 135/78 144/73 H Pulse Oximetry 97 100 Oxygen Delivery 06/23/22 20:00 06/23/22 20:00 06/23/22 22:00 Temperature Pulse Rate 96 101 H 94 Respiratory Rate 17 Blood Pressure Pulse Oximetry Oxygen Delivery Room Air 06/24/22 00:00 06/24/22 00:00 06/24/22 02:00 Temperature Pulse Rate 82 94 104 H Respiratory Rate Blood Pressure Pulse Oximetry Oxygen Delivery Room Air 06/24/22 03:31 06/24/22 04:00 06/24/22 04:00 Temperature 97.8 F Pulse Rate 110 H 94 101 H Respiratory Rate 16 Blood Pressure 128/73 Pulse Oximetry 99 Oxygen Delivery Room Air 06/24/22 06:00 06/24/22 08:00 06/24/22 08:00 Temperature 98.2 F 98.2 F Pulse Rate 95 92 92 Respiratory Rate 16 16 Blood Pressure 135/79 135/79 Pulse Oximetry 100 100 Oxygen Delivery 06/24/22 08:00 06/24/22 12:00 06/24/22 08:00 Temperature 98 F Pulse Rate 98 94 Respiratory Rate 18 Blood Pressure 145/76 H Pulse Oximetry 99 Oxygen Delivery Room Air 06/24/22 10:00 06/24/22 12:00 Temperature Pulse Rate 99 97 Respiratory Rate Blood Pressure Pulse Oximetry Oxygen Delivery Intake/Output Intake/Output: Intake & Output 06/21/22 06/22/22 06/23/22 06/24/22 23:59 23:59 23:59 23:59 Intake Total 1420 2757 2300 1100 Output Total 1140 2150 2850 800 Balance 280 607 -550 300 Meds/Results Medications: Active Medications Generic Name Dose Route Start Last Admin Trade Name Freq PRN Reason Stop Dose Admin Sodium Chloride 1,000 mls @ 75 mls/hr 06/21/22 00:45 06/24/22 10:53 Normal Saline Iv IV CONT 75 mls/hr .[id number] BILLY Administration Acetaminophen 1,000 mg in 100 mls @ 400 mls/hr 06/23/22 22:46 06/24/22 07:55 Ofirmev 1,000 Mg Ivpb IVPB 06/28/22 22:45 Infused Q6H PRN Infusion Pain Rated 4-6 Metoprolol Tartrate 5 mg 06/23/22 16:06 06/23/22 16:16 Metoprolol Tartrate Inj 5 Mg/5 Ml Vial IV PUSH 5 m
[2022-06-24] MEDS: METOPROLOL TARTRATE INJ 5 MG/5 ML VIAL IV PUSH (12:59)
[2022-06-25] VITALS (9 sets, daily range): BP systolic 127–133; BP diastolic 69–79; PULSE 72–106; RESP 16–19; TEMP 36.6–37.1; O2SAT 96–100
[2022-06-25 05:01] LABS: Hematocrit 26.6 % (42.0-52.0); Hemoglobin 8.3 g/dL (14.0-18.0); Mean Corpuscular HGB Conc 31.2 g/dl (32-36); Mean Corpuscular Hemoglobin 27.2 pg (26-34); Mean Corpuscular Volume 87.2 fl (80-100); Platelet Count Result 317 k/mm3 (150-375); Red Blood Count 3.05 M/mm3 (4.6-6.20); Red Cell Distribution Width 15.4 % (11.5-14.5); White Blood Count 8.6 K/mm3 (4.5-10.0)
[2022-06-25 05:43] LABS: Anion Gap 9 mmol/L (8-16); Blood Urea Nitrogen 12 mg/dL (9-20); Calcium 7.9 mg/dL (8.4-10.2); Carbon Dioxide 28 mmol/L (22-30); Chloride 104 mmol/L (98-107); Estimated CRCL calculation 75 ml/min; Estimated Glomerular Filt Rate > 60; Glucose 128 mg/dL (65-110); Magnesium 1.6 mg/dL (1.6-2.3); Sodium 141 mmol/L (137-145)
--- NOTE | 2022-06-25 09:54 | PM.PNGS ---
Progress Note: A&P Assessment and Plan (1) Small bowel obstruction: Code(s): K56.609 - Unspecified intestinal obstruction, unspecified as to partial versus complete obstruction Status: Acute Assessment and Plan: normal exam, will advance to regular diet, encourage OOB/IS Subjective Subjective Date/Time Seen: 06/25/22 09:54 feels good, jeffrey clears, multiple BMs Review of Systems Review of Systems: All systems reviewed & are unremarkable except as noted in HPI and below Exam Const: General: cooperative, comfortable and no acute distress Resp: Auscultation: clear to auscultation bilaterally Cardio: Rate: regular rate Rhythm: regular rhythm GI: Inspection: normal to inspection and non-distended GI Palp: No abdominal tenderness, Yes Soft to palpation, No Tenderness to palpation present (GI), No Guarding due to palpation present (GI) and No Rigid due to palpation Objective Data Vital Signs Vital Signs: Vital Signs - 24 hr 06/24/22 12:00 06/24/22 10:00 06/24/22 12:00 Temperature 36.6 C Pulse Rate 98 99 97 Respiratory Rate 18 Blood Pressure 145/76 H Pulse Oximetry 99 Oxygen Delivery 06/24/22 12:00 06/24/22 12:59 06/24/22 16:00 Temperature Pulse Rate 166 H Respiratory Rate Blood Pressure Pulse Oximetry Oxygen Delivery Room Air Room Air 06/24/22 14:00 06/24/22 16:00 06/24/22 16:00 Temperature 36.6 C Pulse Rate 101 H 97 95 Respiratory Rate 18 Blood Pressure 139/86 Pulse Oximetry 100 Oxygen Delivery 06/24/22 18:00 06/24/22 20:00 06/24/22 20:00 Temperature Pulse Rate 115 H 99 97 Respiratory Rate 18 Blood Pressure Pulse Oximetry 100 Oxygen Delivery Room Air 06/24/22 20:00 06/24/22 21:49 06/25/22 00:00 Temperature 37.3 C 36.6 C Pulse Rate 98 98 92 Respiratory Rate 18 18 Blood Pressure 144/71 H 131/72 Pulse Oximetry 99 97 Oxygen Delivery 06/25/22 00:00 06/25/22 00:00 06/25/22 02:00 Temperature Pulse Rate 92 92 94 Respiratory Rate 18 Blood Pressure Pulse Oximetry 97 Oxygen Delivery Room Air 06/25/22 04:00 06/25/22 04:00 06/25/22 04:00 Temperature 37.1 C Pulse Rate 82 82 90 Respiratory Rate 18 16 Blood Pressure 127/70 Pulse Oximetry 97 96 Oxygen Delivery Room Air 06/25/22 05:50 06/25/22 07:30 06/25/22 08:00 Temperature 36.6 C 36.6 C Pulse Rate 72 88 83 Respiratory Rate 16 18 Blood Pressure 133/69 131/78 Pulse Oximetry 100 97 Oxygen Delivery Intake/Output Intake/Output: Intake & Output 06/22/22 06/23/22 06/24/22 06/25/22 23:59 23:59 23:59 23:59 Intake Total 2757 2300 3060 100 Output Total 2150 2850 1700 850 Balance 607 -550 1360 -750 Meds/Results Medications: Active Medications Generic Name Dose Route Start Last Admin Trade Name Freq PRN Reason Stop Dose Admin Sodium Chloride 1,000 mls @ 75 mls/hr 06/21/22 00:45 06/24/22 23:21 Normal Saline Iv IV CONT 75 mls/hr .[id number] BILLY Administration Acetaminophen 1,000 mg in 100 mls @ 400 mls/hr 06/23/22 22:46 06/25/22 03:39 Ofirmev 1,000 Mg Ivpb IVPB 06/28/22 22:45 Infused Q6H PRN Infusion Pain Rated 4-6 Potassium Chloride 40 meq/ 520 mls @ 130 mls/hr 06/25/22 08:36 Sodium Chloride IVPB 06/25/22 12:35 ONCE ONE Metoprolol Tartrate 5 mg 06/23/22 16:06 06/24/22 12:59 Metoprolol Tartrate Inj 5 Mg/5 Ml Vial IV PUSH 5 mg Q6H PRN Administration Tachycardia Morphine Sulfate 2 mg 06/20/22 18:11 06/20/22 21:42 Morphine Sulfate (*Crx) 2 Mg/Ml Inj IV PUSH 2 mg Q4H PRN Administration Pain Rated 7-10 Ondansetron HCl 4 mg 06/20/22 18:11 06/22/22 17:41 Ondansetron Inj 4 Mg/2 Ml Vial IV PUSH 4 mg Q4H PRN Administration Nausea And Vomiting Oxycodone HCl 5 mg 06/21/22 00:41 06/22/22 15:39 Oxycodone Hcl (*Crx) 5 Mg Tab Ir PO 5 mg Q6H PRN Administration Pain Rated 4-6 Tamsulosin HCl 0.4 mg 06/21/22 09:00 06/24/22 0
[2022-06-25] MEDS: POTASSIUM CHLORIDE 20 MEQ PACKET (FOR LIQUID) PO (09:58)
[2022-06-25] MEDS: POTASSIUM CHLORIDE INJ 40 MEQ in SODIUM CHLORIDE 0.9% IV 500 ML 130 MEQ IVPB (10:02)
[2022-06-25] MEDS: TAMSULOSIN HCL 0.4 MG CAPSULE PO (10:44)
--- NOTE | 2022-06-25 12:00 | PM.DS ---
DS: Admitting Diagnosis Discharge Date June 25, 2022 Admitting Diagnosis bowel obstruction DS: Discharge Diagnosis Discharge Diagnosis (1) Small bowel obstruction: Code(s): K56.609 - Unspecified intestinal obstruction, unspecified as to partial versus complete obstruction Status: Acute Assessment and Plan: Appreciate surgical consult. NG tube In place. NG tube and diet per surgery (2) Atrial fibrillation with rapid ventricular response: Code(s): I48.91 - Unspecified atrial fibrillation Status: Acute Assessment and Plan: Cardiology felt this was not related to atrial fibrillation. Monitor (3) Normocytic anemia: Code(s): D64.9 - Anemia, unspecified Status: Acute Assessment and Plan: He has not had labs at this facility before though I suspect his H&H are a bit low from his recent surgery. Monitor for now. (4) Dehydration: Code(s): E86.0 - Dehydration Status: Acute Assessment and Plan: IV fluids (5) Benign prostatic hyperplasia: Code(s): N40.0 - Benign prostatic hyperplasia without lower urinary tract symptoms Status: Acute Assessment and Plan: Og catheter remains in place. DS: Summary Hospital Course Hospital Course: patient was admitted for nausea vomiting abdominal pain. Found to have small-bowel obstruction on evaluation. Surgery was consulted and was able to treat this conservatively with NG tube to low intermittent suction. Patient did have to have the NG tube placed twice. Now he is tolerating a diet can be discharged. Also to note the patient had some tachycardia while in the hospital for. This was felt to be atrial fibrillation originally but after evaluation this was not atrial fibrillation. Patient will follow up with Cardiology on discharge. Low-dose metoprolol was given on discharge as well. Time Spent with Patient Time attestation: Total time spent providing and/or coordinating discharge services: Exam Narrative: Patient is comfortable, NAD HEENT: eyes are clear and none icteric LUNGS: normal respiratory effort ABD: bowel sounds hyperactive, diffusely tender Lower extremities: no edema SKIN: nonjaundiced Neuro: grossly intact. DS: Data Data Completed and Pending Labs on day of discharge: Labs from last 24 hours 06/25/22 06/25/22 04:40 04:40 WBC 8.6 RBC 3.05 L Hgb 8.3 L Hct 26.6 L MCV 87.2 MCH 27.2 MCHC 31.2 L RDW 15.4 H Plt Count 317 MPV 8.0 Sodium 141 Potassium 3.0 L Chloride 104 Carbon Dioxide 28 Anion Gap 9 BUN 12 D Creatinine 0.80 Estim Creat Clear Calc 75 Estimated GFR > 60 Glucose 128 H Calcium 7.9 L Magnesium 1.6 Discharge Plan Discharge Attending physician on discharge: Omar Cross Consulting providers: Maria A Horne ; Loida Salgado Discharging Clinician: Omar Cross Patient Disposition: Home, Self-Care Activity: no preference Diet: as tolerated Patient Instructions: Antibiotic Form, Diltiazem (By injection), A-fib (Atrial Fibrillation) (DC), Bowel Obstruction (DC), Nasogastric Tube (DC) Stand Alone Forms: General Discharge Information Follow-up/Referrals: Maria A Horne MD [Physician] - Loida Salgado DO [Physician] - Discharge Medications: New metoprolol tartrate 25 mg tablet 12.5 mg PO BID Qty: 15 0RF Continued tamsulosin 0.4 mg capsule 0.4 mg PO DAILY oxycodone 5 mg tablet 5 mg PO Q6H PRN (Reason: PAIN) Date of admission: 06/20/22 15:14 Primary Care Provider: PHYSICIAN NOT ON STAFF,NONSTAFF Admitting Provider: Araseli Cherry Attending physician on admission: Araseli Cherry Condition: Stable
--- NOTE | 2022-06-25 13:51 | PC.NURSE ---
On 06/25/22, the student, [Cherelle Torres], provided care and completed [facility] documentation on this patient. I have reviewed the student's documentation and agree with the findings.
== END 2022-06-25 13:23 | disposition home or self-care (01) | DRG 390 ==
LOC: ANHED 14:07 → ANHIMU 15:03
PROVIDERS: Emergency Medicine; Family Medicine; Physician Assistant; Admitting Provider Student in an Organized Health Care Education/Training Program; Emergency Provider Emergency Medicine; Visit Provider Chiropractor
DX: K91.30 Postprocedural intestinal obstruction, unspecified as to partial versus complete (principal); D50.0 Iron deficiency anemia secondary to blood loss (chronic); E86.0 Dehydration; N40.0 Benign prostatic hyperplasia without lower urinary tract symptoms; K21.9 Gastro-esophageal reflux disease without esophagitis; R00.0 Tachycardia, unspecified; I48.91 Unspecified atrial fibrillation; Z90.5 Acquired absence of kidney; Z87.891 Personal history of nicotine dependence
CPT/HCPCS: 36415; 74176; 74250; 80048; 80053; 81001; 83605; 83735; 84443; 84484; 85025; 85027; 87086; 93005; 93306; 96361; 96365; 96366; 96375; 96376; 99285; A9270; C9113; G0378; J0131; J2270; J2405; J3480; J7030; J7040